=== PATIENT | male | born 1990 | race Two or more races ===

== ENCOUNTER 2024-12-17 19:00 | Emergency (ER) | payer OTHER ==
[~2024-12-17] VITALS: Ht 165.1 cm; Wt 59.9 kg
[2024-12-17] MEDS ORDERED: ACETAMINOPHEN 500 MG GEL..CAP PO ONE (20:30)
[2024-12-17] MEDS ORDERED: GUAIFENESIN/DEXTROMETHORPHAN 100MG/10ML BLIST.PACK PO ONE (20:30)
[2024-12-17] MEDS ORDERED: 0.9 % SODIUM CHLORIDE 500 ML IV ONE (20:30)
[2024-12-17 21:37] LABS: HEMATOCRIT 38.5 % (39.0-48.0); HEMOGLOBIN 13.5 g/dL (13-16.00); MEAN CELL VOLUME 83.8 fL (80.0-100.00); MEAN CORPUSCULAR HEMOGLOBIN 29.5 pg (27.00-32.0); MEAN CORPUSCULAR HGB CONC 35.2 g/dl (32.0-36.0); PLATELET COUNT 139 K/uL (150-450); RED BLOOD COUNT 4.59 M/uL (4.00-6.00); RED CELL DISTRIBUTION WIDTH 13.5 % (11.5-14.5)
[2024-12-17] MEDS ORDERED: OSELTAMIVIR PHOSPHATE 75 MG CAPSULE PO ONE (21:45)
[2024-12-17] MEDS ORDERED: ALBUTEROL1.25 MG/3 IH (21:49)
[2024-12-17] MEDS ORDERED: OSEL75CA PO (21:49)
[2024-12-17] MEDS ORDERED: TUSSIN DM LIQU118 ML PO (21:49)
== END 2024-12-17 22:16 | disposition home or self-care (01) ==
LOC: ER 19:03
PROVIDERS: General Practice
DX: J10.1 Influenza due to other identified influenza virus with other respiratory manifestations (principal); R50.9 Fever, unspecified; Z20.822 Contact with and (suspected) exposure to COVID-19